=== PATIENT | male | born 1980 | race Caucasian/White ===

== ENCOUNTER 2019-07-24 12:40 | Emergency (ER) | payer OTHER ==
[~2019-07-24] VITALS: Ht 182.9 cm; Wt 102.1 kg
[2019-07-24 12:48] VITALS: BP 132/78
[2019-07-24] MEDS ORDERED: ZYPREXA20 MG PO (12:52)
[2019-07-24] MEDS ORDERED: ZOLOFT25 MG PO (12:52)
[2019-07-24] MEDS ORDERED: WELLBUTRIN 100100 MG PO (12:52)
[2019-07-24] MEDS ORDERED: MOBIC7.5 MG PO (12:58)
[2019-07-24] MEDS ORDERED: ULTRAM 50MG TAB50 MG PO (12:58)
== END 2019-07-24 13:10 | disposition home or self-care (01) ==
LOC: ER 12:40
DX: M25.511 Pain in right shoulder (principal); F17.210 Nicotine dependence, cigarettes, uncomplicated; Z88.1 Allergy status to other antibiotic agents